=== PATIENT | female | born 1970 | race Caucasian/White ===

== ENCOUNTER 2016-07-11 11:32 | Emergency (ER) | payer BC | END 2016-07-11 13:34 | disposition home or self-care (01) | LOC: ER1 11:32 | DX: N30.91 Cystitis, unspecified with hematuria (principal); I10 Essential (primary) hypertension; Z88.8 Allergy status to other drugs, medicaments and biological substances | CPT/HCPCS: 36415; 81001; 99283 ==

== ENCOUNTER → 2020-03-26 | Outpatient (CLI) | payer BC ==
[~2020-03-26] MED LIST: NORFLEX 100 MG100 MG PO; Voltaren Gel 1 % TOP
== END ==
LOC: KOH-I 15:00
DX: M79.601 Pain in right arm (principal); R20.2 Paresthesia of skin; M19.011 Primary osteoarthritis, right shoulder; M19.021 Primary osteoarthritis, right elbow; M19.041 Primary osteoarthritis, right hand
CPT/HCPCS: 73060; 73080; 73090; 73130